=== PATIENT | male | born 1995 | race Caucasian/White ===

== ENCOUNTER 2016-07-20 20:14 | Inpatient (IN) | payer OTHER ==
[~2016-07-20] VITALS: Ht 172.7 cm; Wt 108.9 kg
[~2016-07-20 20:14] MED LIST: AMOXICILLIN500 M2 PO; BACTRIM DS TAB1 EACH PO; BENADRYL25 MG PO; CLONAZEPAM1 M2 PO; FLOMAX0.4 M1 PO; HYDROMORPHONE HC4 M1 PO; IBUPROFEN800 M1 PO; KEFLEX500 M1 PO; OXYCONTIN60 M1 PO; PAROXETINE HCL40 M1 PO; PERCOCET 5-3251 EACH PO; SENNA8.6 M3 PO; TRAMADOL HCL50 M1 PO; ZOFRAN ODT4 M1 SL
--- NOTE | 2016-07-20 22:07 | ED GENERAL ADULT ---
History of Present Illness General Chief Complaint: General Adult Stated Complaint: MULTIPLE COMPLAINTS Source: patient, family Exam Limitations: no limitations Vital Signs & Intake/Output Vital Signs & Intake/Output Vital Signs Date Time Temp Pulse Resp B/P Pulse O2 O2 Flow FiO2 Ox Delivery Rate 07/20 2353 99.9 108 18 102/52 94 Room Air 07/20 2318 99 Room Air 07/20 2023 100.9 134 16 134/79 98 Room Air Room Air ED Intake and Output 07/21 0000 07/20 1200 Intake Total Output Total Balance Patient 240 lb Weight Allergies Coded Allergies: No Known Allergies (07/20/16) Reconcile Medications Amoxicillin 500 MG CAPSULE 1 CAP PO PRN PROPHYLAXIS (Reported) Cephalexin (Keflex) 500 MG CAPSULE 1 CAP PO 4 TIMES/DAY cellulitis Clonazepam 1 MG TABLET 1 TAB PO BID ANXIETY (Reported) Diphenhydramine HCl (Benadryl) 25 MG CAPSULE 2 CAP PO PRN ITCHING (Reported) Hydromorphone HCl 4 MG TABLET 2.5 TAB PO Q3D PAIN - WOUND VAC CHANGE ( Reported) Ibuprofen 800 MG TABLET 1 TAB PO TID PRN pain Ondansetron (Zofran Odt) 4 MG TAB.RAPDIS 1 TAB SL TID PRN nausea Oxycodone HCl (Oxycontin) 60 MG TAB.ER.12H 1 TAB PO BID PAIN (Reported) Oxycodone HCl/Acetaminophen (Percocet 5-325 MG Tablet) 1 EACH TABLET 1 TAB PO Q4HR PRN breakthrough pain Paroxetine HCl 40 MG TABLET 1 TAB PO DAILY MENTAL HEALTH (Reported) Sennosides (Senna) 8.6 MG TABLET 2 TAB PO PRN GI (Reported) Sulfamethoxazole/Trimethoprim (Bactrim Ds Tablet) 800 MG-160 MG TABLET 1 TAB PO BID cellulitis Tamsulosin HCl (Flomax) 0.4 MG CAP.ER.24H 1 CAP PO DAILY KIDNEY STONE Tamsulosin HCl (Flomax) 0.4 MG CAP.ER.24H 1 CAP PO DAILY kidney stone Tramadol HCl 50 MG TABLET 1 TAB PO Q6P PRN PAIN (Reported) Triage Note: PT TO TRIAGE WITH RIGHT THIGH PAIN, SWELLING AND REDDNESS. PT STATES HE HAS A HX OF CELLULITIS AND NECROTIZING FACITIS TO THE SAME SPOT SINCE LAST YEAR. PT HAS HAD FEVERS AT HOME Triage Nurses Notes Reviewed? yes Onset: Gradual Duration: getting worse Timing: recent history Severity: severe Severity Numbers: 7 HPI: Patient is a 21-year-old male with a past medical HX OF necrotizing fasciitis, ADHD, anxiety and migraines who presents to emergency room with a gradual onset of redness to the RIGHT groin region approximately 3-4 days ago however the redness has now progressed WITH irritation and swelling to the right inguinal region. Denies any active discharge. Patient has fevers Denies any testicular swelling or pain. Denies any mechanism of injury (MITA DRUMMOND) Past History Travel History Traveled to [place] past 21 day No Medical History Any Pertinent Medical History? 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 No (MITA DRUMMOND) Review of Systems Review of Systems Constitutional: Reports: no symptoms. EENTM: Reports: no symptoms. Respiratory: Reports: no symptoms. Cardiovascular: Reports: no symptoms. GI: Reports: no symptoms. Genitourinary: Reports: no symptoms. Musculoskeletal: Reports: see HPI. Skin: Reports: see HPI. Neurological/Psychological: Reports: no symptoms. Hematologic/Endocrine: Reports: no symptoms. Immunologic/Allergic: Reports: no symptoms. All Other Systems: Reviewed and Negative (MITA DRUMMOND) Physical Exam Physical Exam General Appearance: alert, obese Head: atraumatic Eyes: Bilateral: normal appearance, PERRL. Ears, Nose, Throat: normal pharynx, normal ENT inspection, hearing grossly normal Neck: normal inspection, supple Respiratory: normal breath sounds, chest non-tender Cardiovascular: regular rate/rhythm Extremities: normal capillary refill, swelling, tenderness Neurologic/Psych: no motor/sensory deficits, awake Skin: intact Lymphatic: no anterior cervical paris Comments: - testicles nontender no scrotal swelling no tenderness Core Measures ACS in differential dx? No CVA/TIA Diagnosis: No Severe Sepsis Present: No Septic Shock Present: No Diagram Body: 1) Erythema warmth and tenderness noted no active discharge (MITA DRUMMOND) Progress Differential Diagnoses I considered the following diagnoses in my evaluation of the patient: [ Cellulitis, abscess, NECROTIZING fasciitis, sepsis, testicular torsion] Plan of Care: Orders Procedure Date/time Status LACTIC ACID 07/215 Active Admit to inpatient 07/20 234 Active Patient Data 07/20 2336 Active PARTIAL THROMBOPLASTIN TIME 07/20 2215 Complete PROTHROMBIN TIME 07/20 2215 Complete TYPE & SCREEN (NOT X-MATCH) 07/20 2215 Complete BLOOD CULTURE 07/20 2214 Active LACTIC ACID 07/20 2214 Complete COMPREHENSIVE METABOLIC PANEL 07/20 2214 Complete CBC WITHOUT DIFFERENTIAL 07/20 2214 Complete Laboratory Tests 07/20/162304: Anion Gap 9, Estimated GFR > 60, BUN/Creatinine Ratio 10.0, Glucose 81, Lactic Acid 1.3, Calcium 7.9 L, Total Bilirubin 0.4, AST 26, ALT 65, Alkaline Phosphatase 70, Total Protein 5.8 L, Albumin 3.2 L, Globulin 2.6, Albumin/ Globulin Ratio 1.2 07/20/162214: PT 12.8 H, INR 1.22 H, APTT 27, CBC w Diff MAN DIFF ORDERED, RBC 5.88, MCV 85.8, MCH 28.4, RDW 16.9 H, MPV 7.2 L, Gran % 90.7 H, Lymphocytes % 8.1 L, Monocytes % 1.0 L, Eosinophils % 0.1, Basophils % 0.1, Absolute Granulocytes 17.0 H, Segmented Neutrophils 78 H, Band Neutrophils 9 H, Absolute Lymphocytes 1.5, Lymphocytes 11 L, Monocytes 2, Absolute Monocytes 0.2, Absolute Eosinophils 0, Absolute Basophils 0, Platelet Estimate ADEQUATE, Normocytic RBCs VERIFIED, Normochromic RBCs VERIFIED, PUBS MCHC 33.1 Microbiology 07/20 2229 BLOOD: Blood Culture - RECD 07/20 2214 BLOOD: Blood Culture - RECD Patient was initially ordered antibiotics for concerns of necrotizing fasciitis however after CT scan was resulted there was no radiological evidence -per report- of abscess AIR or necrotizing fasciitis Discussed patient with surgical JUAN and Dr. Parham also discussed patient with Hema Mcclure MD who they will consult Patient will be admitted to general medicine and will REQUIRE IV antibiotics and close monitoring for significant past medical history (MITA DRUMMOND) Diagnostic Imaging: Viewed by Me: CT Scan. Radiology Impression: acute abnormality Initial ED EKG: none Comments: PATIENT: SIENNA LOWERY PRESENT AGE: 21 PATIENT ACCOUNT NO: [id number] : 94 LOCATION: [facility] ORDERING PHYSICIAN: MITA MARTINEZ SERVICE DATE: 07/20/165709 EXAM TYPE: CAT - CT PELVIS W IV CONTRAST EXAMINATION: CT PELVIS WITH IV CONTRAST CLINICAL INFORMATION: Right inguinal cellulitis and abscess. Necrotizing fasciitis right groin and hip. COMPARISON: CT right hip 04/23/2016. CT scan abdomen pelvis 12/16/2015 TECHNIQUE: Helical scanning was performed with submillimeter collimation through the pelvis with 95 mL of Optiray 320 intravenous contrast. Sagittal and coronal multiplanar 2-D reconstructions were obtained. DLP: 1343.36 mGy-cm. FINDINGS: No intrapelvic abnormality. No edema or fluid collection. Visualized bowel loops unremarkable. Bladder normal. Prostate and seminal vesicles normal. No ventral wall hernia. There is fluid and skin thickening of the right upper thigh extending from the anterior medial thigh through the inferior right gluteal region to the upper medial thigh. No air collection within the soft tissues. No focal organized abscess. No radiopaque foreign body. The intermuscular fat planes are normal. No focal finding in the muscle. Bone unremarkable. IMPRESSION: Subcutaneous fluid and skin thickening of the right upper thigh without defined abscess or air in the soft tissue. DICTATED BY: JV JOYNER MD (MITA DRUMMOND) Departure Departure Disposition: STILL A PATIENT Condition: Guarded Clinical Impression Primary Impression: Cellulitis of groin, right Referrals: HUONG APARICIO MD (PCP/Family) Departure Forms: Customer Survey General Discharge Information Admission Note Spoke With: KRANTHI FLORENCE MD Documentation of Exam: Documentation of any treatments & extenuating circumstances including Concerns Regarding Discharge (functional status, medication knowledge or non-compliance, living conditions, etc.) that warrant an admission rather than observation: [ Discussed patient with WHO AGREES with GEN medicine admission for concerns of significant right groin cellulitis which patient requires IV antibiotics, and surgery consultation and close monitoring due to significant past medical history of necrotizing fasciitis] (MITA DRUMMOND) PA/BRIDGE IRONWORKER Co-Sign Statement Statement: ED Attending supervision documentation- [X] I saw and evaluated the patient. I have also reviewed all the pertinent lab results and diagnostic results. I agree with the findings and the plan of care as documented in the PA's/BRIDGE IRONWORKER's documentation. [X] I have reviewed the ED Record and agree with the PA's/BRIDGE IRONWORKER's documentation. [] Additions or exceptions (if any) to the PAs/BRIDGE IRONWORKER's note and plan are summarized below: [] (DIDIER TAYLOR,XENIA Gonzales) Critical Care Note Critical Care Note Critical Care Time: non-applicable (MITA DRUMMOND)
[2016-07-20 22:41] LABS: ABSOLUTE BASOPHIL COUNT 0 /CUMM (0.0-0.2); ABSOLUTE EOSINOPHIL COUNT 0 /CUMM (0.0-0.7); ABSOLUTE LYMPH COUNT 1.5 /CUMM (1.2-3.4); ABSOLUTE MONOCYTE COUNT 0.2 /CUMM (0.10-0.60); BASOPHIL % 0.1 % (0.0-2.0); EOSINOPHIL % 0.1 % (0-5); HEMATOCRIT 50.4 % (42-52); MEAN CORPUSCULAR HGB 28.4 PG (27.0-31.0); MEAN CORPUSCULAR HGB CONC 33.1 G/DL (33.0-37.0); MEAN CORPUSCULAR VOLUME 85.8 FL (80.0-94.0); MEAN PLATELET VOLUME 7.2 FL (7.4-10.4); PLATELET COUNT 237 /CUMM (130-400); RBC DISTRIBUTION WIDTH 16.9 % (11.5-14.5); RED BLOOD CELL CT 5.88 /CUMM (4.70-6.10); WHITE BLOOD CELL COUNT 18.8 /CUMM (4.8-10.8)
[2016-07-20 22:49] LABS: PT 12.8 SEC (9.4-12.5); PTT 27 SEC (25-37)
[2016-07-20 22:54] LABS: GRANULOCYTE % 90.7 % (42.2-75.2)
--- NOTE | 2016-07-20 23:24 | CT SCAN REPORT ---
EXAMINATION: CT PELVIS WITH IV CONTRAST CLINICAL INFORMATION: Right inguinal cellulitis and abscess. Necrotizing fasciitis right groin and hip. COMPARISON: CT right hip 04/23/2016. CT scan abdomen pelvis 12/16/2015 TECHNIQUE: Helical scanning was performed with submillimeter collimation through the pelvis with 95 mL of Optiray 320 intravenous contrast. Sagittal and coronal multiplanar 2-D reconstructions were obtained. DLP: 1343.36 mGy-cm. FINDINGS: No intrapelvic abnormality. No edema or fluid collection. Visualized bowel loops unremarkable. Bladder normal. Prostate and seminal vesicles normal. No ventral wall hernia. There is fluid and skin thickening of the right upper thigh extending from the anterior medial thigh through the inferior right gluteal region to the upper medial thigh. No air collection within the soft tissues. No focal organized abscess. No radiopaque foreign body. The intermuscular fat planes are normal. No focal finding in the muscle. Bone unremarkable. IMPRESSION: Subcutaneous fluid and skin thickening of the right upper thigh without defined abscess or air in the soft tissue.
--- NOTE | 2016-07-21 00:53 | Cons- General Surgery ---
General Information and HPI Consulting Request Date of Consult: 07/21/16 Requested By: Felipe Mancera PA-C Reason for Consult: Left thigh cellulitis Source of Information: patient, family Exam Limitations: no limitations History of Present Illness: Patient is a 21yo M with history of right thigh necrotizing fasciitis (treated at [facility] and released in November of 2015) , right thigh cellulitis in April 2016 requiring hospital admission but no surgery, whom presents to [facility] ED with left thigh redness and fever. Patient states his symptoms started a couple of days ago with some mild redness but this morning he had increased redness, increased swelling, and mild tenderness in his left posterior thigh. He c/o slight fever as well. He denies any drainage. No changes in sensation to RLE. He states that this episode is similar to the one he had last April which required hospital admission and a course of IV abx. No further c/o. Denies CP/ SOB. Allergies/Medications Allergies: Coded Allergies: No Known Allergies (07/20/16) Home Med List: Amoxicillin 500 MG CAPSULE 1 CAP PO PRN PROPHYLAXIS (Reported) Cephalexin (Keflex) 500 MG CAPSULE 1 CAP PO 4 TIMES/DAY cellulitis Clonazepam 1 MG TABLET 1 TAB PO BID ANXIETY (Reported) Diphenhydramine HCl (Benadryl) 25 MG CAPSULE 2 CAP PO PRN ITCHING (Reported) Hydromorphone HCl 4 MG TABLET 2.5 TAB PO Q3D PAIN - WOUND VAC CHANGE ( Reported) Ibuprofen 800 MG TABLET 1 TAB PO TID PRN pain Ondansetron (Zofran Odt) 4 MG TAB.RAPDIS 1 TAB SL TID PRN nausea Oxycodone HCl (Oxycontin) 60 MG TAB.ER.12H 1 TAB PO BID PAIN (Reported) Oxycodone HCl/Acetaminophen (Percocet 5-325 MG Tablet) 1 EACH TABLET 1 TAB PO Q4HR PRN breakthrough pain Paroxetine HCl 40 MG TABLET 1 TAB PO DAILY MENTAL HEALTH (Reported) Sennosides (Senna) 8.6 MG TABLET 2 TAB PO PRN GI (Reported) Sulfamethoxazole/Trimethoprim (Bactrim Ds Tablet) 800 MG-160 MG TABLET 1 TAB PO BID cellulitis Tamsulosin HCl (Flomax) 0.4 MG CAP.ER.24H 1 CAP PO DAILY KIDNEY STONE Tamsulosin HCl (Flomax) 0.4 MG CAP.ER.24H 1 CAP PO DAILY kidney stone Tramadol HCl 50 MG TABLET 1 TAB PO Q6P PRN PAIN (Reported) Past History Medical History Neurological: migraine EENT: NONE Cardiovascular: NONE Respiratory: NONE Gastrointestinal: NONE Hepatic: NONE Renal: NONE Musculoskeletal: necrotizing fasciitis R WRIST FX FX TOE Psychiatric: anxiety, depression, OCD Endocrine: NONE Blood Disorders: NONE Cancer(s): NONE 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 EENTM: Reports: no symptoms. Cardiovascular: Denies: chest pain, palpitations. Respiratory: Denies: short of breath. GI: Denies: abdominal pain, distention. Genitourinary: Denies: dysuria, frequency. Musculoskeletal: Reports: no symptoms. Skin: Reports: see HPI. Exam & Diagnostic Data Vital Signs and I&O Vital Signs Date Time Temp Pulse Resp B/P Pulse O2 O2 Flow FiO2 Ox Delivery Rate 07/20 2353 99.9 108 18 102/52 94 Room Air 07/20 2318 99 Room Air 07/20 2023 100.9 134 16 134/79 98 Room Air Room Air Intake & Output 07/21 0800 07/21 0000 07/20 1600 07/20 0800 07/20 0000 07/19 1600 Intake Total Output Total Balance Patient 240 lb Weight Physical Exam: General: WDWN, NAD, comfortable, A&Ox3 Chest: CTAB. RRR. Abdomen: soft, nontender, nondistended. Ext: Right thigh circumferential cellulitis that starts at the superior thigh and ends mid thigh. There is an area of tenderness in posterior thigh but no areas of induration, fluctuance, or obvious areas of abscess formation. Right thigh is mildly swollen and warm to touch, compartments soft. No calve swelling /TTP, neurovascularly intact bilateral lower extremities Last 24 Hours of Labs: Laboratory Tests 07/20 07/20 2305 2215 Chemistry Sodium (137 - 145 mmol/L) 136 L Potassium (3.5 - 5.1 mmol/L) 3.7 Chloride (98 - 107 mmol/L) 101 Carbon Dioxide (22 - 30 mmol/L) 26 Anion Gap (5 - 16) 9 BUN (9 - 20 mg/dL) 12 Creatinine (0.7 - 1.2 mg/dL) 1.2 Estimated GFR (>60 ml/min) > 60 BUN/Creatinine Ratio (7 - 25 %) 10.0 Glucose (65 - 99 mg/dL) 81 Lactic Acid (0.7 - 2.1 mmol/L) 1.3 Calcium (8.4 - 10.2 mg/dL) 7.9 L Total Bilirubin (0.2 - 1.3 mg/dL) 0.4 AST (17 - 59 U/L) 26 ALT (21 - 72 U/L) 65 Alkaline Phosphatase (< 127 U/L) 70 Total Protein (6.3 - 8.2 g/dL) 5.8 L Albumin (3.5 - 5.0 g/dL) 3.2 L Globulin (1.9 - 4.2 gm/dL) 2.6 Albumin/Globulin Ratio (1.1 - 2.2 %) 1.2 Coagulation PT (9.4 - 12.5 SEC) 12.8 H INR (0.90 - 1.17) 1.22 H APTT (25 - 37 SEC) 27 Hematology CBC w Diff MAN DIFF ORDERED WBC (4.8 - 10.8 /CUMM) 18.8 H RBC (4.70 - 6.10 /CUMM) 5.88 Hgb (14.0 - 18.0 G/DL) 16.7 Hct (42 - 52 %) 50.4 MCV (80.0 - 94.0 FL) 85.8 MCH (27.0 - 31.0 PG) 28.4 RDW (11.5 - 14.5 %) 16.9 H Plt Count (130 - 400 /CUMM) 237 MPV (7.4 - 10.4 FL) 7.2 L Gran % (42.2 - 75.2 %) 90.7 H Lymphocytes % (20.5 - 51.1 %) 8.1 L Monocytes % (1.7 - 9.3 %) 1.0 L Eosinophils % (0 - 5 %) 0.1 Basophils % (0.0 - 2.0 %) 0.1 Absolute Granulocytes (1.4 - 6.5 /CUMM) 17.0 H Segmented Neutrophils (42.2 - 75.2 %) 78 H Band Neutrophils (0.0 - 5.0 %) 9 H Absolute Lymphocytes (1.2 - 3.4 /CUMM) 1.5 Lymphocytes (20.5 - 51.1 %) 11 L Monocytes (1.7 - 9.3 %) 2 Absolute Monocytes (0.10 - 0.60 /CUMM) 0.2 Absolute Eosinophils (0.0 - 0.7 /CUMM) 0 Absolute Basophils (0.0 - 0.2 /CUMM) 0 Platelet Estimate (ADEQUATE) ADEQUATE Normocytic RBCs VERIFIED Normochromic RBCs VERIFIED PUBS MCHC (33.0 - 37.0 G/DL) 33.1 Imaging Results: EXAM TYPE: CAT - CT PELVIS W IV CONTRAST EXAMINATION: CT PELVIS WITH IV CONTRAST CLINICAL INFORMATION: Right inguinal cellulitis and abscess. Necrotizing fasciitis right groin and hip. COMPARISON: CT right hip 04/23/2016. CT scan abdomen pelvis 12/16/2015 TECHNIQUE: Helical scanning was performed with submillimeter collimation through the pelvis with 95 mL of Optiray 320 intravenous contrast. Sagittal and coronal multiplanar 2-D reconstructions were obtained. DLP: 1343.36 mGy-cm. FINDINGS: No intrapelvic abnormality. No edema or fluid collection. Visualized bowel loops unremarkable. Bladder normal. Prostate and seminal vesicles normal. No ventral wall hernia. There is fluid and skin thickening of the right upper thigh extending from the anterior medial thigh through the inferior right gluteal region to the upper medial thigh. No air collection within the soft tissues. No focal organized abscess. No radiopaque foreign body. The intermuscular fat planes are normal. No focal finding in the muscle. Bone unremarkable. IMPRESSION: Subcutaneous fluid and skin thickening of the right upper thigh without defined abscess or air in the soft tissue. Assessment/Plan Assessment/Plan 21yo M with history of right thigh necrotizing fasciitis that presents with right thigh cellulitis without obvious areas of abscess formation. No evidence of necrotizing fasciitis on CT scan. - Admit to medicine - IV antibiotics - Pain control - Cellulitis areas marked, continue to follow progression/regression - Okay to have sips of fluids but remain nothing by mouth after 4 AM for reassessment - Continue IVF - Will reassess in morning, Hema Mcclure MD to see Consult Acknowledgment - Thank you for your consult request.
--- NOTE | 2016-07-21 02:12 | History & Physical ---
ABHI TAYLOR,DANIELA 07/21/16 0211: General Information and HPI MD Statement: I have seen and personally examined SIENNA LOWERY and documented this H&P. The patient is a 21 year old M who presented with a patient stated chief complaint of [fever, erythema and pain on the right upper thigh]. Source of Information: patient, family Exam Limitations: no limitations History of Present Illness: Patient is a 21-year-old male who has come to the ED due to fever chills, pain and redness of the right upper thigh. Patient started to have fever and chills since 2 weeks ago, he also developed symptoms of upper respiratory tract infection including cough and shortness of breath for a couple of days. He noticed a redness and tenderness on the right upper thigh and right lower back this morning, accompanied by severe muscle weakness and headache and a spike of fever to 103.9. Patient has a history of necrotizing fasciitis in November 2015 at [place] that required debridement, at a similar site. According to mother the bacteria grown in the cultures was Streptococcus and was negative for MRSA. Recently he had an episode of cellulitis in April 2016 again at the same site, was admitted to [facility] and was treated with oral antibiotics. His past medical history is also significant for ADHD, anxiety and depression, as well as migraine. Allergies/Medications Allergies: Coded Allergies: No Known Allergies (07/20/16) Past History Travel History Traveled to [place] past 21 day No Medical History Neurological: migraine EENT: NONE Cardiovascular: NONE Respiratory: NONE Gastrointestinal: NONE Hepatic: NONE Renal: nephrolithiasis Musculoskeletal: necrotizing fasciitis R WRIST FX FX TOE Psychiatric: anxiety, depression, OCD, ADHD Endocrine: NONE Blood Disorders: NONE Cancer(s): NONE SYSTEMS ANALYST/Reproductive: NONE Surgical History Surgical History: nec fas removal r hip Past Family/Social History Family History Relations & Conditions if any FATHER FH: hypertension MOTHER FH: asthma Psychosocial History ETOH Use: occasional use Illicit Drug Use: denies illicit drug use Living Will? yes Functional Ability ADLs Independent: dressing, eating, toileting, bathing. Ambulation: independent IADLs Independent: shopping, housework, finances, food prep, telephone, transportation , medication admin. Review of Systems Review of Systems Constitutional: Reports: chills, fever, weakness. EENTM: Reports: no symptoms. Cardiovascular: Reports: no symptoms. Respiratory: Reports: cough, short of breath. Denies: sputum production. GI: Denies: abdominal pain, nausea, changes in stool, vomiting. Genitourinary: Denies: discharge, dysuria, frequency, hematuria, hesitation. Musculoskeletal: Denies: back pain, joint pain. Skin: Reports: erythema. Neurological/Psychological: Reports: headache, weakness. Hematologic/Endocrine: Denies: bruising, bleeding, polyuria, polydipsia. Exam & Diagnostic Data Last 24 Hrs of Vital Signs/I&O Vital Signs Date Time Temp Pulse Resp B/P Pulse O2 O2 Flow FiO2 Ox Delivery Rate 07/21 0426 98.3 103 20 110/70 96 Room Air 07/203 99.9 108 18 102/52 94 Room Air 07/20 2318 99 Room Air 07/20 2023 100.9 134 16 134/79 98 Room Air Room Air Intake & Output 07/21 0800 07/21 0000 07/20 1600 Intake Total Output Total Balance Patient 108.862 kg Weight Physical Exam General Appearance Alert, Oriented X3, Cooperative, No Acute Distress Skin erythema on the left lower extremity on the lateral side extending from upper thrid of the thigh to lower back, not affecting scrotum and medial thigh and not extending from midline HEENT Atraumatic, PERRLA, EOMI, Mucous Membr. moist/pink Neck Supple Cardiovascular Regular Rate, Normal S1, Normal S2, No Murmurs Lungs Clear to Auscultation, Normal Air Movement Abdomen Normal Bowel Sounds, Soft, No Tenderness Neurological Normal Gait, Normal Speech, Strength at 5/5 X4 Ext, Normal Tone, Sensation Intact, Cranial Nerves 3-12 NL Extremities No Clubbing, No Cyanosis, No Edema, Normal Pulses, tenderness and erythema on the right upper thigh and lower back Vascular Normal Pulses, Pulses Symmetrical Last 24 Hrs of Labs/Reza: Laboratory Tests 07/21/16 0115: Lactic Acid Cancelled 07/20/16 2305: Anion Gap 9, Estimated GFR > 60, BUN/Creatinine Ratio 10.0, Glucose 81, Lactic Acid 1.3, Calcium 7.9 L, Total Bilirubin 0.4, AST 26, ALT 65, Alkaline Phosphatase 70, Total Protein 5.8 L, Albumin 3.2 L, Globulin 2.6, Albumin/ Globulin Ratio 1.2 07/20/165: PT 12.8 H, INR 1.22 H, APTT 27, CBC w Diff MAN DIFF ORDERED, RBC 5.88, MCV 85.8, MCH 28.4, RDW 16.9 H, MPV 7.2 L, Gran % 90.7 H, Lymphocytes % 8.1 L, Monocytes % 1.0 L, Eosinophils % 0.1, Basophils % 0.1, Absolute Granulocytes 17.0 H, Segmented Neutrophils 78 H, Band Neutrophils 9 H, Absolute Lymphocytes 1.5, Lymphocytes 11 L, Monocytes 2, Absolute Monocytes 0.2, Absolute Eosinophils 0, Absolute Basophils 0, Platelet Estimate ADEQUATE, Normocytic RBCs VERIFIED, Normochromic RBCs VERIFIED, PUBS MCHC 33.1 Microbiology 07/21 0238 URINE ROUT: Streptococcus pneumoniae Antigen (M - ORD 07/20 2229 BLOOD: Blood Culture - RECD 07/20 2214 BLOOD: Blood Culture - RECD Assessment/Plan Assessment: Patient is a 21-year-old male with past medical history significant for a necrotizing fasciitis as well as cellulitis on the right upper thigh, ADHD, anxiety and depression, migraine headaches, nephrolithiasis, OCD, who came to the ED with fever of 2 weeks and a right upper thigh pain and erythema for one day. Also reported symptoms of URTI for [address] scan of the pelvis reported subcutaneous fluid and skin thickening of the right upper thigh without defined abscess or air in the soft tissue. Patient also reports coughing, shortness of breath for the past few days. Problem list and plan Sepsis with fever and cellulitis Patient has a history of necrotizing fasciitis status post debridement in November 2015 on the right upper thigh. * Lactic acid 1.3 * IV fluids * Continue IV antibiotics with Unasyn and clindamycin * Oxycodone 5 mg every 6 PRN and IV Morphine 2 mg every 4 PRN for pain * CT of the pelvis has ruled out necrotizing fasciitis * Surgeries on board, will follow-up on the patient as well * Tylenol for fever Possible bronchitis with cough, sore throat, SOB and fever * influenza swab * urinary strep antigen * CXR History of ADHD Patient does not take Adderall regularly every day, takes 30 mg if needed History of anxiety and depression and migraine headaches * Continue duloxetine 60 mg daily * Continue aripiprazole 2 mg daily * Continue Klonopin 1 mg twice a day History of neuropathic pain Developed after debridement for necrotizing fasciitis a year ago, patient reports paresthesia of the right distal upper thigh * Continue gabapentin 300 mg every 8h DVT prophylaxis * Mechanical for possible surgical intervention Diet * NPO CODE STATUS * full code As Ranked By This Provider Problem List: 1. History of necrotizing fasciitis 2. Cellulitis of groin, right 3. Migraine 4. ADHD (attention deficit hyperactivity disorder) 5. Anxiety 6. Depression 7. Depression Core Measures/Miscellaneous Acute Coronary Syndrome ACS Diagnosis: No Cerebrovascular Accident CVA/TIA Diagnosis: No Congestive Heart Failure CHF Diagnosis: No Venous Thromboembolism VTE Risk Factors: Acute medical illness VTE Prophylaxis Ordered Inpt: Mechanical (ALPS/TEDS) No Mech VTE prophylaxis d/t: No contraindications No VTE Pharm Prophylaxis d/t: No contraindications VTE Diagnosis: No VTE Type: NONE VTE Confirmed by (Test): NONE Severe Sepsis Severe Sepsis Present: No Septic Shock Septic Shock Present: No Miscellaneous Documentation Attending Case Discussed With: KRANTHI FLORENCE MD Primary Care Physician: HUONG APARICIO MD Patient sees these Specialists Dr. Eulalio Amezcua, Psychiatrist Level of Patient Care: General Medicine ROSELIA DAMICO MD 07/21/16 0228: General Information and HPI Allergies/Medications Home Med list Aripiprazole (Abilify) 2 MG TABLET 1 TAB PO DAILY DEPRESSION (Reported) Clonazepam 1 MG TABLET 1 TAB PO BID ANXIETY (Reported) Dextroamphetamine/Amphetamine (Adderall 30 MG Tablet) 30 MG TABLET 1 TAB PO DAILY PRN ADD (Reported) Duloxetine HCl (Cymbalta) 60 MG CAPSULE.DR 1 CAP PO DAILY PAIN/DEPRESSION ( Reported) Gabapentin 300 MG CAPSULE 1 CAP PO TID NEUROPATHIC PAIN (Reported) Resident Review Statement Resident Statement: examined this patient, discussed with computer science intern, agreed with computer science intern, discussed with family, reviewed EMR data (avail), reviewed images, amended to note Other Findings: This is 21-year-old obese young bekah with past medical history of ADHD, KISHA, chronic migraine, nephrolithiasis, OCD, depression, history of necrotizing fasciitis of right thigh status post multiple debridement and wound VAC 1 year prior to admission, was seen in ER in April 2016 for cellulitis of right thigh and was sent home on oral antibiotic with subsequent improvement of the symptoms now comes from home with chief complaint of 2 weeks history of fever and 2 days history of dry cough associated with shortness of breath and sore throat with generalized weakness, noticed significant redness/swelling and pain of right thigh on the day of admission. Patient also report high-grade fewer of 103.9 at home on day of admission with associated severe headache. He denies any recent upper respiratory infection, nausea, vomiting, diarrhea, urinary burning/pain, chest pain or recent travel/sick contact or tick bite. His vitals on admission were T 100.9, HR 134, RR 16, BP 134/79, O2 sat 98% on room air. On physical exam patient noted morbidly obese, alert oriented 3 in mild distress, HEENT PERRLA EOMI, neck supple, heart is Normal without murmur, lungs clear on auscultation, abdomen soft nontender nondistended with preserved fall sounds, noted old healed surgical incision over right gluteal fold with surrounding erythema extending to right thigh, tender to touch, peripheral pulses are intact without any surrounding edema, no focal gross neuro deficit. Capillary refill normal Labs revealed leukocytosis of 18,800 with left shift and bands of 9, H&H 16.7/ 50.4, T3 peripheral, sodium 136, BUN 12, creatinine 1.2, lactic acid 1.3, normal LFT, INR 1.22 CT pelvis with IV contrast revealed subcutaneous fluid and skin thickening of the right upper thigh without abscess or air in soft tissue. Assessment: This is 21 year old obese man with past medical history of necrotizing fasciitis requiring significant department and bone defect placement of a year prior to admission who had another episode of right thigh cellulitis in April 2016 which was treated with oral antibiotic as outpatient now comes in with 2 weeks history of intermittent fever and one day history of significant redness swelling and tenderness of right thigh likely suggestive of acute cellulitis . Patient also reported 2 days history of shortness of breath sore throat and fever. 1. Sepsis secondary to acute cellulitis Patient noted being tachycardic with leukocytosis with bandemia suggestive of sepsis in setting of cellulitis. His lactic acid noted normal on admission and he remained normotensive with normal mental status. CT scan of the pelvis noted negative for any evidence of necrotizing fasciitis or abscess. - Follow-up blood culture - Patient received 1 dose of IV clindamycin, Unasyn and ciprofloxacin in ER - We'll continue IV Unasyn 3 g every 6 hours which will give appropriate gram- positive and gram-negative coverage - Patient received a dose of clindamycin which will give appropriate MRSA and anaerobic coverage - We'll give 1 dose of vancomycin pending blood culture results in the morning - Monitor for any signs of sepsis, give IV gentle fluid hydration - Appreciate surgery recommendation, will keep patient nothing by mouth for possible IND in a.m. in case if it requires 2. Cough with sore throat and fever - ? Acute bronchitis - Check flu swab, strep urinary antigen - Chest x-ray 3. History of ADD 3, KISHA, depression/anxiety - Continue home dose Cymbalta, clonazepam and Abilify - Patient takes Adderall 30 mg as needed basis 4. Right thigh neuropathic pain -Continue Cymbalta and Neurontin home dose 5. DVT prophylaxis Mechanical in anticipation of any surgical intervention including IND 6. Full code NAMAN TAYLOR, [facility] 07/21/16 0455: Attending MD Review Statement Attending Statement Attending MD Statement: examined this patient, discuss w/resident/PA/RUBBER PROCESS HAND, agreed w/resident/PA/RUBBER PROCESS HAND, discussed with family Attending Assessment/Plan: 21 yo morbidly obese M with h/o chronic migraine, nephrolithiasis, ADHD, MDD, KISHA, OCD, previous necrotizing fascitis of right thigh requiring multiple debridements and wound Vac ([facility] November 2015), is here with chills for over 2 weeks, followed by erythema, swelling and tenderness noted to right thigh. Last episode of right thigh cellulitis was in Apr 2016 treated with outpatient antibiotics. He denies insect/tick bites or trauma. He also reports URI symptoms in the past few weeks. He is not sexually active and denies abnormal discharge from penis or erythema/swelling of testicles. Vitals: Tmax 100.9, tachycardic, otherwise stable. Exam: Right thigh swelling, warmth+, erythema from groin to mid thigh, old healed scar+. No obvious fluctuance or purulent discharge. Peripheral pulses well felt. Labs: WBC 18.8, bands 9, INR 1.22, Na 136, lactic acid 1.3, CT shows subcutaneous fluid and skin thickening of right upper thigh without defined abscess or air in soft tissue. 1. Sepsis 2/2 right thigh cellulitis, no current evidence of necrotizing fascitis. Elevate RLE, panculture, patient received Clinda, unasyn and cipro in ER for possible nec fas. Will continue IV Unasyn and Vanco, dariel the area of erythema. Surgery consult. IV fluids. NPO after 4 AM for reassessment by Surgery in AM. Pain management. 2. URI symptoms. Check flu swab and CXR. DVT ppx Alps. Full code.
[2016-07-21] MEDS ORDERED: GABAPENTIN300 M2 PO (02:18)
[2016-07-21] MEDS ORDERED: ADDERALL 30 MG30 MG PO (02:18)
[2016-07-21] MEDS ORDERED: CYMBALTA60 M1 PO (02:19)
[2016-07-21] MEDS ORDERED: ABILIFY2 MG PO (02:19)
[2016-07-21 04:26] VITALS: BP 110/70
--- NOTE | 2016-07-21 04:49 | Admission Certification ---
Admission Certification Certification Statement - As attending physician, I certify that at the time of - admission, based on clinical presentation, severity of - symptoms, need for further diagnostic testing and - therapeutic interventions, and risk of adverse outcomes - without in-hospital treatment, in my clinical assessment, - this patient requires an acute hospital stay for a minimum - of two nights or longer. I have also considered psychsocial - factors such as support system, advanced age, financial - issues, cognitive issues, and failed out-patient treatments, - past re-admission history, safety of patient, and lack of - compliance as applicable. Specific rationale supporting this admission is: Sepsis, right thigh cellulitis, previus h/o necrotizing fascitis.
[2016-07-21 05:57] VITALS: BP 94/70
[2016-07-21 08:11] LABS: ABSOLUTE BASOPHIL COUNT 0 /CUMM (0.0-0.2); ABSOLUTE EOSINOPHIL COUNT 0 /CUMM (0.0-0.7); ABSOLUTE MONOCYTE COUNT 0.3 /CUMM (0.10-0.60); BASOPHIL % 0.1 % (0.0-2.0); EOSINOPHIL % 0.3 % (0-5); MEAN CORPUSCULAR HGB 28.9 PG (27.0-31.0); PLATELET COUNT 203 /CUMM (130-400); WHITE BLOOD CELL COUNT 13.1 /CUMM (4.8-10.8)
[2016-07-21 08:35] LABS: ABSOLUTE GRANULOCYTE CT 11.4 /CUMM (1.4-6.5); ABSOLUTE LYMPH COUNT 1.4 /CUMM (1.2-3.4); GRANULOCYTE % 87.2 % (42.2-75.2); MEAN CORPUSCULAR HGB CONC 33.7 G/DL (33.0-37.0); MEAN CORPUSCULAR VOLUME 85.6 FL (80.0-94.0); MEAN PLATELET VOLUME 7.4 FL (7.4-10.4); RBC DISTRIBUTION WIDTH 17.7 % (11.5-14.5); RED BLOOD CELL CT 4.83 /CUMM (4.70-6.10)
[2016-07-21 08:40] LABS: HEMATOCRIT 41.3 % (42-52)
--- NOTE | 2016-07-21 09:07 | RADIOLOGY REPORT ---
EXAMINATION: XR CHEST CLINICAL INFORMATION: Pneumonia. Shortness of breath and cough. COMPARISON: None TECHNIQUE: 2 views of the chest were obtained. FINDINGS: Lung volumes are low. The cardiomediastinal silhouette is normal. The lungs are clear. No consolidation, pulmonary edema, pleural effusion, or pneumothorax. No acute osseous abnormalities are evident. IMPRESSION: No acute abnormality.
--- NOTE | 2016-07-21 09:49 | PN- Housestaff ---
Subjective Follow-up For: Cellulitis URI Subjective: Patient is 21 year old male with PMH of necrotizing fascitis in left thigh treated in November 2015 came with cellulitis of right thigh. Patient feels well. He reports that the rash developed yesterday and had subkective fever at home. This am he is afebrile but tachycardiac to HR of 100, He has remained tachycardiac since admission. RR 20, Pulse ox 96%. His leukocytosis is improving. Review of Systems Constitutional: Reports: see HPI. Objective Last 24 Hrs of Vital Signs/I&O Vital Signs Date Time Temp Pulse Resp B/P Pulse O2 O2 Flow FiO2 Ox Delivery Rate 07/21 1414 98.2 100 20 116/77 96 07/21 1207 98.2 103 20 112/70 92 07/21 1045 100 100/72 07/21 0557 98.1 96 20 94/70 95 Room Air 07/21 0426 98.3 103 20 110/70 96 Room Air 07/20 2353 99.9 108 18 102/52 94 Room Air 07/20 2318 99 Room Air 07/20 2024 100.9 134 16 134/79 98 Room Air Room Air Intake & Output 07/21 1600 07/21 0800 07/21 0000 Intake Total 1050 Output Total Balance 1050 Intake, IV 850 Intake, Oral 200 Patient 108.862 kg 108.862 kg Weight Physical Exam General Appearance: Alert, Oriented X3, Cooperative, No Acute Distress Skin: erythema in lateral aspect of right thigh HEENT: Atraumatic Neck: Supple Cardiovascular: Regular Rate, Normal S1, Normal S2 Lungs: Clear to Auscultation, Normal Air Movement Abdomen: Normal Bowel Sounds, Soft, No Tenderness Current Medications: Current Medications Sig/Ced Start time Last Medication Dose Route Stop Time Status Admin Acetaminophen 650 MG Q6P PRN 07/21 0230 AC 07/21 PO 1025 Acetaminophen 0 .STK-MED ONE 07/20 2256 DC IV Acetaminophen 1,000 MG ONCE ONE 07/20 2230 DC 07/20 N/A 1 UNIT IV 07/20 2244 2307 Ampicillin Sodium/ 3,000 MG Q6 07/21 0600 AC 07/21 Sulbactam Sodium IV 1224 Sodium Chloride 100 ML Ampicillin Sodium/ 0 .STK-MED ONE 07/20 2321 DC Sulbactam Sodium .ROUTE Ampicillin Sodium/ 3,000 MG ONCE ONE 07/20 2230 DC 07/20 Sulbactam Sodium IV 07/20 2259 2345 Sodium Chloride 100 ML Aripiprazole 2 MG DAILY 07/21 1000 AC 07/21 PO 1026 Ciprofloxacin 400 MG ONCE ONE 07/20 2230 DC 07/21 Dextrose/Water 200 ML IV 07/20 2329 0150 Clindamycin 600 MG ONCE ONE 07/20 2229 DC 07/21 Dextrose/Water 50 ML IV 07/20 2259 0041 Clonazepam 1 MG BID 07/21 0220 AC 07/21 PO 07/28 0219 0435 Duloxetine HCl 60 MG DAILY 07/21 1000 AC 07/21 PO 1026 Gabapentin 300 MG Q8 07/21 0600 AC 07/21 PO 1406 Heparin Sodium 5,000 UNIT Q8 07/21 0122 DC (Porcine) SC Hydromorphone HCl 1 MG Q6P PRN 07/21 1100 AC IV Hydromorphone HCl 0 .STK-MED ONE 07/21 0001 DC .ROUTE Hydromorphone HCl 1 MG ONCE ONE 07/20 2345 DC 07/21 IV 07/20 2346 0019 Hydromorphone HCl 0 .STK-MED ONE 07/20 2321 DC .ROUTE Hydromorphone HCl 1 MG ONCE ONE 07/20 2230 DC 07/20 IV 07/20 2231 2345 Methylphenidate HCl 10 MG TID 07/21 1600 AC PO Morphine Sulfate 2 MG Q4P PRN 07/21 0230 DC 07/21 IV 0438 Oxycodone HCl 5 MG Q6P PRN 07/21 0230 AC PO Patient Medication 1 ED .STK-MED ONE 07/21 1407 DC Teaching ED 07/21 1408 Sodium Chloride 250 ML BOLUS ONE 07/21 1100 DC 07/21 IV 07/21 1159 1056 Sodium Chloride 1,000 ML ONCE ONE 07/21 0245 AC 07/21 IV 07/21 1604 0436 Sodium Chloride 1,000 ML .Q10H 07/21 0030 AC 07/21 IV 0027 Sodium Chloride 1,000 ML BOLUS ONE 07/20 2230 DC 07/20 IV 07/20 2329 2307 Vancomycin HCl 1,500 MG ONCE ONE 07/21 1000 DC Dextrose/Water 500 ML IV 07/21 1129 Last 24 Hrs of Lab/Reza Results Last 24 Hrs of Labs/Mics: Laboratory Tests 07/21/16 0610: Anion Gap 9, Estimated GFR > 60, BUN/Creatinine Ratio 10.0, CBC w Diff MAN DIFF ORDERED, RBC 4.83, MCV 85.6, MCH 28.9, RDW 17.7 H, MPV 7.4, Gran % 87.2 H, Lymphocytes % 10.4 L, Monocytes % 2.0, Eosinophils % 0.3, Basophils % 0.1, Absolute Granulocytes 11.4 H, Segmented Neutrophils 76 H, Band Neutrophils 6 H, Absolute Lymphocytes 1.4, Lymphocytes 15 L, Monocytes 2, Absolute Monocytes 0.3, Eosinophils 1, Absolute Eosinophils 0, Absolute Basophils 0, Platelet Estimate ADEQUATE, Normocytic RBCs VERIFIED, Normochromic RBCs VERIFIED, PUBS MCHC 33.7 07/21/16 0115: Lactic Acid Cancelled 07/20/16 2305: Anion Gap 9, Estimated GFR > 60, BUN/Creatinine Ratio 10.0, Glucose 81, Lactic Acid 1.3, Calcium 7.9 L, Total Bilirubin 0.4, AST 26, ALT 65, Alkaline Phosphatase 70, Total Protein 5.8 L, Albumin 3.2 L, Globulin 2.6, Albumin/ Globulin Ratio 1.2 07/20/162214: PT 12.8 H, INR 1.22 H, APTT 27, CBC w Diff MAN DIFF ORDERED, RBC 5.88, MCV 85.8, MCH 28.4, RDW 16.9 H, MPV 7.2 L, Gran % 90.7 H, Lymphocytes % 8.1 L, Monocytes % 1.0 L, Eosinophils % 0.1, Basophils % 0.1, Absolute Granulocytes 17.0 H, Segmented Neutrophils 78 H, Band Neutrophils 9 H, Absolute Lymphocytes 1.5, Lymphocytes 11 L, Monocytes 2, Absolute Monocytes 0.2, Absolute Eosinophils 0, Absolute Basophils 0, Platelet Estimate ADEQUATE, Normocytic RBCs VERIFIED, Normochromic RBCs VERIFIED, PUBS MCHC 33.1 Microbiology 07/21 237 URINE ROUT: Streptococcus pneumoniae Antigen (M - COLB 07/20 2229 BLOOD: Blood Culture - RES 07/20 2214 BLOOD: Blood Culture - RES Assessment/Plan Assessment: Patient is a 21-year-old male with past medical history significant for a necrotizing fasciitis as well as cellulitis on the right upper thigh, ADHD, anxiety and depression, migraine headaches, nephrolithiasis, OCD, who came to the ED with fever of 2 weeks and a right upper thigh pain and erythema for one day. Also reported symptoms of URTI for [address] scan of the pelvis reported subcutaneous fluid and skin thickening of the right upper thigh without defined abscess or air in the soft tissue. Patient also reports coughing, shortness of breath for the past few days. Problem list and plan Sepsis with fever and cellulitis Patient has a history of necrotizing fasciitis status post debridement in November 2015 on the right upper thigh. Lactic acid 1.3, leukocytosis is improving. CT scan pelvis does not show any collection of pus. Dr. Salgado will evaluate the patient in afternoon for any possible drianage. Radiology service has been requested to compare the currect CT scan thigh with the previous one from Apr 2016. Patient is on unasyn, will continue. Dilaudid 1 mg q6prn for pain control Tylenol for fever prn Possible bronchitis with cough, sore throat, SOB and fever Patient refused Flu swab. He says he has a hx of seasonal allergies. will provide symptomatic treatment History of ADHD Patient does not take Adderall regularly every day, takes 30 mg if needed. Will start ratilin as inpatient. The hospital does not carry adderoll. History of anxiety and depression and migraine headaches Continued on duloxetine 60 mg daily, aripiprazole 2 mg daily, Klonopin 1 mg twice a day History of neuropathic pain Developed after debridement for necrotizing fasciitis a year ago, patient reports paresthesia of the right distal upper thigh. Will continue gabapentin 300 mg every 8h DVT prophylaxis * Mechanical for possible surgical intervention Diet * NPO CODE STATUS * full code Problem List: 1. Cellulitis Pain Ratin Pain Location: right thigh Pain Goal: Pain 4 or less Pain Plan: Dilaudid 1 mg q6 prn Tomorrow's Labs & Rationales: cbc
[2016-07-21 10:45] VITALS: BP 100/72
[2016-07-21 12:07] VITALS: BP 112/70
--- NOTE | 2016-07-21 12:08 | PN- Att Addend ---
Attending Addendum Attending Brief Note Patient seen and examined, complained of migraine headache. He is a 21-year-old male who was admitted with sepsis secondary to right lower extremity cellulitis. With patient's previous history of necrotizing fasciitis, surgical evaluation was obtained last evening and they recommended reevaluation this morning by Hema Mcclure MD. Vital Signs Date Time Temp Pulse Resp B/P Pulse O2 O2 Flow FiO2 Ox Delivery Rate 07/21 0557 98.1 96 20 94/70 95 Room Air 07/21 0426 98.3 103 20 110/70 96 Room Air 07/20 2353 99.9 108 18 102/52 94 Room Air 07/20 2318 99 Room Air 07/20 2023 100.9 134 16 134/79 98 Room Air Room Air on exam; aox3, nad. cv; s1,s2, rrr. resp; clear. abd; soft, nt, bs+ ext; no edema. skin; there is resolving erythema on right thigh. Laboratory Tests 07/21 07/21 07/20 0610 0115 2305 Chemistry Sodium (137 - 145 mmol/L) 139 136 L Potassium (3.5 - 5.1 mmol/L) 3.8 3.7 Chloride (98 - 107 mmol/L) 106 101 Carbon Dioxide (22 - 30 mmol/L) 24 26 Anion Gap (5 - 16) 9 9 BUN (9 - 20 mg/dL) 10 12 Creatinine (0.7 - 1.2 mg/dL) 1.0 1.2 Estimated GFR (>60 ml/min) > 60 > 60 BUN/Creatinine Ratio (7 - 25 %) 10.0 10.0 Glucose (65 - 99 mg/dL) 81 Lactic Acid (0.7 - 2.1 mmol/L) Cancelled 1.3 Calcium (8.4 - 10.2 mg/dL) 7.9 L Total Bilirubin (0.2 - 1.3 mg/dL) 0.4 AST (17 - 59 U/L) 26 ALT (21 - 72 U/L) 65 Alkaline Phosphatase (< 127 U/L) 70 Total Protein (6.3 - 8.2 g/dL) 5.8 L Albumin (3.5 - 5.0 g/dL) 3.2 L Globulin (1.9 - 4.2 gm/dL) 2.6 Albumin/Globulin Ratio (1.1 - 2.2 %) 1.2 Hematology CBC w Diff MAN DIFF ORDERED WBC (4.8 - 10.8 /CUMM) 13.1 H RBC (4.70 - 6.10 /CUMM) 4.83 Hgb (14.0 - 18.0 G/DL) 13.9 L Hct (42 - 52 %) 41.3 L MCV (80.0 - 94.0 FL) 85.6 MCH (27.0 - 31.0 PG) 28.9 RDW (11.5 - 14.5 %) 17.7 H Plt Count (130 - 400 /CUMM) 203 MPV (7.4 - 10.4 FL) 7.4 Gran % (42.2 - 75.2 %) 87.2 H Lymphocytes % (20.5 - 51.1 %) 10.4 L Monocytes % (1.7 - 9.3 %) 2.0 Eosinophils % (0 - 5 %) 0.3 Basophils % (0.0 - 2.0 %) 0.1 Absolute Granulocytes (1.4 - 6.5 /CUMM) 11.4 H Segmented Neutrophils (42.2 - 75.2 %) 76 H Band Neutrophils (0.0 - 5.0 %) 6 H Absolute Lymphocytes (1.2 - 3.4 /CUMM) 1.4 Lymphocytes (20.5 - 51.1 %) 15 L Monocytes (1.7 - 9.3 %) 2 Absolute Monocytes (0.10 - 0.60 /CUMM) 0.3 Eosinophils (0 - 5.0 %) 1 Absolute Eosinophils (0.0 - 0.7 /CUMM) 0 Absolute Basophils (0.0 - 0.2 /CUMM) 0 Platelet Estimate (ADEQUATE) ADEQUATE Normocytic RBCs VERIFIED Normochromic RBCs VERIFIED PUBS MCHC (33.0 - 37.0 G/DL) 33.7 07/20 2215 Coagulation PT (9.4 - 12.5 SEC) 12.8 H INR (0.90 - 1.17) 1.22 H APTT (25 - 37 SEC) 27 Hematology CBC w Diff MAN DIFF ORDERED WBC (4.8 - 10.8 /CUMM) 18.8 H RBC (4.70 - 6.10 /CUMM) 5.88 Hgb (14.0 - 18.0 G/DL) 16.7 Hct (42 - 52 %) 50.4 MCV (80.0 - 94.0 FL) 85.8 MCH (27.0 - 31.0 PG) 28.4 RDW (11.5 - 14.5 %) 16.9 H Plt Count (130 - 400 /CUMM) 237 MPV (7.4 - 10.4 FL) 7.2 L Gran % (42.2 - 75.2 %) 90.7 H Lymphocytes % (20.5 - 51.1 %) 8.1 L Monocytes % (1.7 - 9.3 %) 1.0 L Eosinophils % (0 - 5 %) 0.1 Basophils % (0.0 - 2.0 %) 0.1 Absolute Granulocytes (1.4 - 6.5 /CUMM) 17.0 H Segmented Neutrophils (42.2 - 75.2 %) 78 H Band Neutrophils (0.0 - 5.0 %) 9 H Absolute Lymphocytes (1.2 - 3.4 /CUMM) 1.5 Lymphocytes (20.5 - 51.1 %) 11 L Monocytes (1.7 - 9.3 %) 2 Absolute Monocytes (0.10 - 0.60 /CUMM) 0.2 Absolute Eosinophils (0.0 - 0.7 /CUMM) 0 Absolute Basophils (0.0 - 0.2 /CUMM) 0 Platelet Estimate (ADEQUATE) ADEQUATE Normocytic RBCs VERIFIED Normochromic RBCs VERIFIED PUBS MCHC (33.0 - 37.0 G/DL) 33.1 A/P; 21 yo morbidly obese M with h/o chronic migraine, nephrolithiasis, ADHD, MDD, KISHA, OCD, previous necrotizing fascitis of right thigh requiring multiple debridements and wound Vac (COUNTS INCLUDE 234 BEDS AT THE [facility] November 2015), now admitted with sepsis likely 2/2 to cellulitis. I doubt that patient has necrotizing fascitis. No known history of MRSA. Will stop the vancomycin and continue the patient on Unasyn. Patient was evaluated by surgical team yesterday and they recommended reevaluation this morning by Hema Mcclure MD. That is still pending. Currently patient NPO in case if surgery recommends any procedures. Patient was started on morphine but said that morphine was not controlling his pain therefore will switch him to IV Dilaudid. Blood pressure has been running slightly low, patient is receiving IV fluids. Continue other current psych medications. Please start Lovenox for DVT px.
[2016-07-21 14:14] VITALS: BP 116/77
--- NOTE | 2016-07-21 18:07 | Cons- General Surgery ---
General Information and HPI Consulting Request Date of Consult: 07/21/16 Requested By: MARIXA HUNTER MD History of Present Illness: CC: Right groin pain and swelling HPI: 21-year-old overweight nondiabetic smoker had surgery for necrotizing fasciitis in his right groin last August according to his mother the wounds didn't finally heal and completely close until late February. Patient came in last night to the ER with pain and redness and swelling at the surgical sites he had this before in April where it was treated as an outpatient with antibiotics this time it hurts the swelling is mostly posterior near his buttocks the previous time it was more anterior in the groin crease he thinks he has had a little bit of a fever, if feels better today but not much, he's on IV antibiotics, pain is not worse on movement he's moving his bowels regularly no diarrhea no constipation no anal pain no ankle swelling, as this time he's unsure what happened in April to trigger this inflammation. . I've reviewed the [facility]. No history of bleeding problems, heart disease or issues with anesthesia, but he has a history of UTIs and kidney stones. Allergies/Medications Allergies: Coded Allergies: No Known Allergies (07/20/16) Home Med List: Aripiprazole (Abilify) 2 MG TABLET 1 TAB PO DAILY DEPRESSION (Reported) Clonazepam 1 MG TABLET 1 TAB PO BID ANXIETY (Reported) Dextroamphetamine/Amphetamine (Adderall 30 MG Tablet) 30 MG TABLET 1 TAB PO DAILY PRN ADD (Reported) Duloxetine HCl (Cymbalta) 60 MG CAPSULE.DR 1 CAP PO DAILY PAIN/DEPRESSION ( Reported) Gabapentin 300 MG CAPSULE 1 CAP PO TID NEUROPATHIC PAIN (Reported) Current Medications: I reviewed Current Medications Sig/Ced Start time Last Medication Dose Route Stop Time Status Admin Acetaminophen 650 MG Q6P PRN 07/21 0230 AC 07/21 PO 1025 Acetaminophen 0 .STK-MED ONE 07/20 2256 DC IV Acetaminophen 1,000 MG ONCE ONE 07/20 2230 DC 07/20 N/A 1 UNIT IV 07/20 2244 2307 Ampicillin Sodium/ 3,000 MG Q6 07/21 0600 AC 07/21 Sulbactam Sodium IV 1224 Sodium Chloride 100 ML Ampicillin Sodium/ 0 .STK-MED ONE 07/20 2321 DC Sulbactam Sodium .ROUTE Ampicillin Sodium/ 3,000 MG ONCE ONE 07/20 2230 DC 07/20 Sulbactam Sodium IV 07/20 2259 2345 Sodium Chloride 100 ML Aripiprazole 2 MG DAILY 07/21 1000 AC 07/21 PO 1026 Ciprofloxacin 400 MG ONCE ONE 07/20 2230 DC 07/21 Dextrose/Water 200 ML IV 07/20 2329 0150 Clindamycin 600 MG ONCE ONE 07/20 2230 DC 07/21 Dextrose/Water 50 ML IV 07/20 2259 0041 Clonazepam 1 MG BID 07/21 0220 AC 07/21 PO 07/28 0219 0435 Duloxetine HCl 60 MG DAILY 07/21 1000 AC 07/21 PO 1026 Gabapentin 300 MG Q8 07/21 0600 AC 07/21 PO 1406 Heparin Sodium 5,000 UNIT Q8 07/21 0122 DC (Porcine) SC Hydromorphone HCl 1 MG Q6P PRN 07/21 1100 AC 07/21 IV 1655 Hydromorphone HCl 0 .STK-MED ONE 07/21 0001 DC .ROUTE Hydromorphone HCl 1 MG ONCE ONE 07/20 2345 DC 07/21 IV 07/20 2346 0019 Hydromorphone HCl 0 .STK-MED ONE 07/20 2321 DC .ROUTE Hydromorphone HCl 1 MG ONCE ONE 07/20 223 DC 07/20 IV 07/20 2231 2345 Methylphenidate HCl 10 MG TID 07/21 1600 AC PO Morphine Sulfate 2 MG Q4P PRN 07/21 0230 DC 07/21 IV 0438 Oxycodone HCl 5 MG Q6P PRN 07/21 0230 AC PO Patient Medication 1 ED .STK-MED ONE 07/21 1407 DC Teaching ED 07/21 1408 Sodium Chloride 250 ML BOLUS ONE 07/21 1100 DC 07/21 IV 07/21 1159 1056 Sodium Chloride 1,000 ML ONCE ONE 07/21 0245 DC 07/21 IV 07/21 1604 0436 Sodium Chloride 1,000 ML .Q10H 07/21 0030 AC 07/21 IV 1644 Sodium Chloride 1,000 ML BOLUS ONE 07/20 2230 DC 07/20 IV 07/20 2329 2307 Vancomycin HCl 1,500 MG ONCE ONE 07/21 1000 DC Dextrose/Water 500 ML IV 07/21 1129 Past History Medical History Blood Transfusion Hx: No Neurological: migraine EENT: NONE Cardiovascular: NONE Respiratory: NONE Gastrointestinal: NONE Hepatic: NONE Renal: nephrolithiasis Musculoskeletal: necrotizing fasciitis R WRIST FX FX TOE Psychiatric: anxiety, depression, OCD, ADHD Endocrine: NONE Blood Disorders: NONE Cancer(s): NONE 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 Home Services at Home: None ETOH Use: occasional use Illicit Drug Use: denies illicit drug use Living Will? yes Functional Ability ADLs Independent: dressing, eating, toileting, bathing. Ambulation: independent IADLs Independent: shopping, housework, finances, food prep, telephone, transportation , medication admin. Review of Systems Review of Systems: Constitutional: No fever, sweats or weight loss ENMT: No sore throat Cardiovascular: No chest pain, palpitations or leg swelling Respiratory: No shortness of breath, cough, or sputum or dyspnea on exertion GI: No GERD or bleeding per rectum : No dysuria or hematuria Musculoskeletal: No new muscle weakness, bone or joint pain Skin / Breast: No jaundice, rashes or itching Psychiatric: No history of drug or alcohol abuse no depression or anxiety Hematologic / lymphatic system: No problems with excessive bleeding, bruising, or blood clots Exam & Diagnostic Data Vital Signs and I&O I reviewed Vital Signs Date Time Temp Pulse Resp B/P Pulse O2 O2 Flow FiO2 Ox Delivery Rate 07/21 1414 98.2 100 20 116/77 96 07/21 1207 98.2 103 20 112/70 92 07/21 1045 100 100/72 07/21 0557 98.1 96 20 94/70 95 Room Air 07/21 0426 98.3 103 20 110/70 96 Room Air 07/20 2353 99.9 108 18 102/52 94 Room Air 07/20 2318 99 Room Air 07/20 2023 100.9 134 16 134/79 98 Room Air Room Air I reviewed Intake & Output 07/21 1600 07/21 0800 07/21 0000 07/20 1600 07/20 0807/20 0000 Intake Total 1050 Output Total Balance 1050 Intake, IV 850 Intake, Oral 200 Patient 240 lb 240 lb Weight Physical Exam: Constitutional: pleasant, no acute distress, conversant Eyes: sclera anicteric ENMT: ears and nose atraumatic, moist mucous membranes, good dentition, no lip lesions Neck: Supple, trachea is midline, no cervical or supraclavicular adenopathy and no palpable thyromegaly Cardiovascular: S1, S2, no murmurs, no peripheral edema Respiratory: clear to auscultation with normal respiratory effort and no intercostal retractions GI: abdomen soft, nontender, nondistended, no palpable hepatosplenomegaly Extremities / lymphatics: symmetrically warm, free range of motion no peripheral edema, no cervical, supraclavicular, axillary, or inguinal adenopathy Musculoskeletal: Normal gait and station, no digital cyanosis, good muscle strength and tone no atrophy, motor grossly 5 out of 5 throughout Skin: no jaundice, no rashes warm, nondiaphoretic, In the right inguinal femoral region there is a soft tissue defect with healed scar his medial thigh is larger than his left he says that's been that way since the surgery there is erythema and edema mostly medially near the scrotum and around back near the buttock crease but no skin breakdown no crepitus no necrosis it's dry and overall its less than last night as evidenced by the pen jacobs Psychiatric: mood and affect are appropriate and alert and oriented to person place and time Last 24 Hours of Labs: I reviewed Laboratory Tests 07/21 07/21 07/20 0610 0115 2305 Chemistry Sodium (137 - 145 mmol/L) 139 136 L Potassium (3.5 - 5.1 mmol/L) 3.8 3.7 Chloride (98 - 107 mmol/L) 106 101 Carbon Dioxide (22 - 30 mmol/L) 24 26 Anion Gap (5 - 16) 9 9 BUN (9 - 20 mg/dL) 10 12 Creatinine (0.7 - 1.2 mg/dL) 1.0 1.2 Estimated GFR (>60 ml/min) > 60 > 60 BUN/Creatinine Ratio (7 - 25 %) 10.0 10.0 Glucose (65 - 99 mg/dL) 81 Lactic Acid (0.7 - 2.1 mmol/L) Cancelled 1.3 Calcium (8.4 - 10.2 mg/dL) 7.9 L Total Bilirubin (0.2 - 1.3 mg/dL) 0.4 AST (17 - 59 U/L) 26 ALT (21 - 72 U/L) 65 Alkaline Phosphatase (< 127 U/L) 70 Total Protein (6.3 - 8.2 g/dL) 5.8 L Albumin (3.5 - 5.0 g/dL) 3.2 L Globulin (1.9 - 4.2 gm/dL) 2.6 Albumin/Globulin Ratio (1.1 - 2.2 %) 1.2 Hematology CBC w Diff MAN DIFF ORDERED WBC (4.8 - 10.8 /CUMM) 13.1 H RBC (4.70 - 6.10 /CUMM) 4.83 Hgb (14.0 - 18.0 G/DL) 13.9 L Hct (42 - 52 %) 41.3 L MCV (80.0 - 94.0 FL) 85.6 MCH (27.0 - 31.0 PG) 28.9 RDW (11.5 - 14.5 %) 17.7 H Plt Count (130 - 400 /CUMM) 203 MPV (7.4 - 10.4 FL) 7.4 Gran % (42.2 - 75.2 %) 87.2 H Lymphocytes % (20.5 - 51.1 %) 10.4 L Monocytes % (1.7 - 9.3 %) 2.0 Eosinophils % (0 - 5 %) 0.3 Basophils % (0.0 - 2.0 %) 0.1 Absolute Granulocytes (1.4 - 6.5 /CUMM) 11.4 H Segmented Neutrophils (42.2 - 75.2 %) 76 H Band Neutrophils (0.0 - 5.0 %) 6 H Absolute Lymphocytes (1.2 - 3.4 /CUMM) 1.4 Lymphocytes (20.5 - 51.1 %) 15 L Monocytes (1.7 - 9.3 %) 2 Absolute Monocytes (0.10 - 0.60 /CUMM) 0.3 Eosinophils (0 - 5.0 %) 1 Absolute Eosinophils (0.0 - 0.7 /CUMM) 0 Absolute Basophils (0.0 - 0.2 /CUMM) 0 Platelet Estimate (ADEQUATE) ADEQUATE Normocytic RBCs VERIFIED Normochromic RBCs VERIFIED PUBS MCHC (33.0 - 37.0 G/DL) 33.7 07/20 2215 Coagulation PT (9.4 - 12.5 SEC) 12.8 H INR (0.90 - 1.17) 1.22 H APTT (25 - 37 SEC) 27 Hematology CBC w Diff MAN DIFF ORDERED WBC (4.8 - 10.8 /CUMM) 18.8 H RBC (4.70 - 6.10 /CUMM) 5.88 Hgb (14.0 - 18.0 G/DL) 16.7 Hct (42 - 52 %) 50.4 MCV (80.0 - 94.0 FL) 85.8 MCH (27.0 - 31.0 PG) 28.4 RDW (11.5 - 14.5 %) 16.9 H Plt Count (130 - 400 /CUMM) 237 MPV (7.4 - 10.4 FL) 7.2 L Gran % (42.2 - 75.2 %) 90.7 H Lymphocytes % (20.5 - 51.1 %) 8.1 L Monocytes % (1.7 - 9.3 %) 1.0 L Eosinophils % (0 - 5 %) 0.1 Basophils % (0.0 - 2.0 %) 0.1 Absolute Granulocytes (1.4 - 6.5 /CUMM) 17.0 H Segmented Neutrophils (42.2 - 75.2 %) 78 H Band Neutrophils (0.0 - 5.0 %) 9 H Absolute Lymphocytes (1.2 - 3.4 /CUMM) 1.5 Lymphocytes (20.5 - 51.1 %) 11 L Monocytes (1.7 - 9.3 %) 2 Absolute Monocytes (0.10 - 0.60 /CUMM) 0.2 Absolute Eosinophils (0.0 - 0.7 /CUMM) 0 Absolute Basophils (0.0 - 0.2 /CUMM) 0 Platelet Estimate (ADEQUATE) ADEQUATE Normocytic RBCs VERIFIED Normochromic RBCs VERIFIED PUBS MCHC (33.0 - 37.0 G/DL) 33.1 Assessment/Plan Assessment/Plan Studies I reviewed on PACS myself the CT scans from last night April 23 and last December 15 that one doesn't go low enough but the April scan and the current scan shows similar changes in that region there is skin thickening and scarring but no focal fluid collections no gas bubbles and no clear stranding overall it seems the changes seem relatively superficial. Impression is recurrent cellulitis which is probably somehow related to the original problem and extensive prior surgery and prolonged several month healing , perhaps there is an element of impaired lymphatic or venous drainage because of the tissue defect and interruption of vessels his leukocytosis has improved he's afebrile is no signs of abscess or tissue necrosis I would continue the IV antibiotics. I stressed to him the importance of stopping smoking as it affects healing, especially skin. Problem List: 1. Cellulitis of groin, right Consult Acknowledgment - Thank you for your consult request.
[2016-07-21 21:23] VITALS: BP 110/74
[2016-07-22 06:57] VITALS: BP 110/74
--- NOTE | 2016-07-22 08:08 | PN- Housestaff ---
BRANDY THOMAS 07/22/16 0808: Subjective Follow-up For: right leg cellulitis Subjective: Patient is seen and examined. Reported of headache. He continues to be tachycardiac but refused to EKG. He does not complain of pain in his right thigh region. ROS negative for Chest pain, dizziness, SOB. Review of Systems Constitutional: Reports: see HPI. Objective Last 24 Hrs of Vital Signs/I&O Vital Signs Date Time Temp Pulse Resp B/P Pulse O2 O2 Flow FiO2 Ox Delivery Rate 07/22 0657 99.7 112 25 110/74 92 Room Air 07/21 2123 98.9 105 24 110/74 92 Room Air 07/21 1414 98.2 100 20 116/77 96 Intake & Output 07/22 1600 07/22 0800 07/22 0000 Intake Total 1100 1050 Output Total 450 Balance 1100 600 Intake, IV 800 800 Intake, Oral 300 250 Output, Urine 450 Physical Exam General Appearance: Alert, Oriented X3, Cooperative, No Acute Distress Skin: No Rashes, No Breakdown HEENT: Atraumatic Neck: Supple Cardiovascular: Regular Rate, Normal S1, Normal S2 Lungs: Clear to Auscultation, Normal Air Movement Abdomen: Normal Bowel Sounds, Soft, No Tenderness Neurological: Normal Speech Extremities: erythematous lesion on lateral aspect of right thigh Current Medications: Current Medications Sig/Ced Start time Last Medication Dose Route Stop Time Status Admin Acetaminophen 650 MG Q6P PRN 07/21 0230 AC 07/22 PO 1033 Ampicillin Sodium/ 3,000 MG Q6 07/21 0600 AC 07/22 Sulbactam Sodium IV 1228 Sodium Chloride 100 ML Aripiprazole 2 MG DAILY 07/21 1000 AC 07/22 PO 1032 Clonazepam 1 MG BID 07/21 0220 AC 07/22 PO 07/28 0219 1033 Duloxetine HCl 60 MG DAILY 07/21 1000 AC 07/22 PO 1032 Gabapentin 300 MG Q8 07/21 0600 AC 07/22 PO 0525 Hydromorphone HCl 1 MG Q6P PRN 07/21 1100 AC 07/22 IV 0606 Methylphenidate HCl 10 MG TID 07/21 1600 AC PO Oxycodone HCl 5 MG Q6P PRN 07/21 0230 AC PO Patient Medication 1 ED .STK-MED ONE 07/21 1407 DC Teaching ED 07/21 1408 Sodium Chloride 1,000 ML ONCE ONE 07/21 0245 DC 07/21 IV 07/21 1604 0436 Sodium Chloride 1,000 ML .Q10H 07/21 0030 AC 07/22 IV 0525 Last 24 Hrs of Lab/Reza Results Last 24 Hrs of Labs/Mics: Laboratory Tests 07/22/16 0635: CBC w Diff NO MAN DIFF REQ, RBC 4.59 L, MCV 86.0, MCH 28.8, RDW 17.4 H, MPV 7.8, Gran % 61.4, Lymphocytes % 25.9, Monocytes % 10.6 H, Eosinophils % 1.9, Basophils % 0.2, Absolute Granulocytes 5.0, Absolute Lymphocytes 2.1, Absolute Monocytes 0.9 H, Absolute Eosinophils 0.2, Absolute Basophils 0, PUBS MCHC 33.5 07/21/16 1650: Urine Opiates Screen 2634.00 H, Methadone Screen 75, Barbiturate Screen < 60, Ur Phencyclidine Scrn < 6.00, Amphetamines Screen 654, U Benzodiazepines Scrn < 85, Urine Cocaine Screen < 50, Urine Cannabis Screen 11.60, Urinalysis MOD H, Urine Color YEL, Urine Clarity CLEAR, Urine pH 6.0, Ur Specific [place] >= 1.030 , Urine Protein 30 H, Urine Ketones TRACE H, Urine Nitrite NEG, Urine Bilirubin NEG, Urine Urobilinogen 0.2, Ur Leukocyte Esterase NEG, Ur Microscopic SEDIMENT EXAMINED, Urine RBC RARE, Urine WBC RARE, Ur Epithelial Cells MOD H, Urine Mucus FEW, Urine Hemoglobin NEG, Urine Glucose NEG Microbiology 07/21 1649 URINE ROUT: Streptococcus pneumoniae Antigen (M - COMP Assessment/Plan Assessment: Patient is a 21-year-old male with past medical history significant for a necrotizing fasciitis as well as cellulitis on the right upper thigh, ADHD, anxiety and depression, migraine headaches, nephrolithiasis, OCD, who came to the ED with fever of 2 weeks and a right upper thigh pain and erythema for one day. Also reported symptoms of URTI for [address] scan of the pelvis reported subcutaneous fluid and skin thickening of the right upper thigh without defined abscess or air in the soft tissue. Patient also reports coughing, shortness of breath for the past few days. Problem list and plan Sepsis with fever and cellulitis Patient has a history of necrotizing fasciitis status post debridement in November 2015 on the right upper thigh. Lactic acid 1.3, CT scan pelvis does not show any collection of pus. Dr. Salgado evaluated the patient on 07/21, he does not think there there is any abcess to drain. Patient is on unasyn, will continue. Dilaudid 1 mg q6prn for pain control Tylenol for fever prn Possible bronchitis with cough, sore throat, SOB and fever Patient refused Flu swab. He says he has a hx of seasonal allergies. will provide symptomatic treatment. He feels better History of ADHD Patient takes Adderall 30 mg if needed. Will start ratilin as inpatient as needed. The hospital does not carry adderoll. History of anxiety and depression and migraine headaches Continued on duloxetine 60 mg daily, aripiprazole 2 mg daily, Klonopin 1 mg twice a day History of neuropathic pain Developed after debridement for necrotizing fasciitis a year ago, patient reports paresthesia of the right distal upper thigh. Will continue gabapentin 300 mg every 8h DVT prophylaxis * Mechanical Diet * regular Koshar and vegitarian CODE STATUS * full code Problem List: 1. Cellulitis Pain Ratin Pain Location: right thigh lateral aspect Pain Goal: Pain 4 or less Pain Plan: dilaudid and tylenol prn Tomorrow's Labs & Rationales: issa HUNTER MD,MARIXA 07/22/16 1111: Attending MD Review Statement Attending Statement Attending MD Statement: examined this patient, discuss w/resident/PA/TEACHER AIDE, agreed w/resident/PA/TEACHER AIDE, reviewed EMR data (avail), discussed with nursing, reviewed images, amended to note Attending Assessment/Plan: Patient seen and examined, still has some pain. The right high erythema has improved. Patient is still getting of headache. He was found to be slightly tachycardic so he wanted to get an EKG but he refused. I also encouraged him to walk outside the room he said that he has some anxiety therefore he cannot walk, people. He will try that later when no one is around. Vital Signs Date Time Temp Pulse Resp B/P Pulse O2 O2 Flow FiO2 Ox Delivery Rate 07/22 0657 99.7 112 25 110/74 92 Room Air 07/21 2123 98.9 105 24 110/74 92 Room Air 07/21 1414 98.2 100 20 116/77 96 07/21 1207 98.2 103 20 112/70 92 on exam; aox3, nad. cv; s1,s2, rrr. resp; clear abd; soft, nt, bs+ ext; no edema. Laboratory Tests 07/22 07/21 0635 1650 Hematology CBC w Diff NO MAN DIFF REQ WBC (4.8 - 10.8 /CUMM) 8.2 RBC (4.70 - 6.10 /CUMM) 4.59 L Hgb (14.0 - 18.0 G/DL) 13.2 L Hct (42 - 52 %) 39.5 L MCV (80.0 - 94.0 FL) 86.0 MCH (27.0 - 31.0 PG) 28.8 RDW (11.5 - 14.5 %) 17.4 H Plt Count (130 - 400 /CUMM) 176 MPV (7.4 - 10.4 FL) 7.8 Gran % (42.2 - 75.2 %) 61.4 Lymphocytes % (20.5 - 51.1 %) 25.9 Monocytes % (1.7 - 9.3 %) 10.6 H Eosinophils % (0 - 5 %) 1.9 Basophils % (0.0 - 2.0 %) 0.2 Absolute Granulocytes (1.4 - 6.5 /CUMM) 5.0 Absolute Lymphocytes (1.2 - 3.4 /CUMM) 2.1 Absolute Monocytes (0.10 - 0.60 /CUMM) 0.9 H Absolute Eosinophils (0.0 - 0.7 /CUMM) 0.2 Absolute Basophils (0.0 - 0.2 /CUMM) 0 PUBS MCHC (33.0 - 37.0 G/DL) 33.5 Toxicology Urine Opiates Screen (>2000 NG/ML) 2634.00 H Methadone Screen (>300 NG/ML) 75 Barbiturate Screen (>200 NG/ML) < 60 Ur Phencyclidine Scrn (>25 NG/ML) < 6.00 Amphetamines Screen (>1000 NG/ML) 654 U Benzodiazepines Scrn (>200 NG/ML) < 85 Urine Cocaine Screen (>300 NG/ML) < 50 Urine Cannabis Screen (>50 NG/ML) 11.60 Urines Urinalysis MOD H Urine Color (YEL,AMB,STR) YEL Urine Clarity (CLEAR) CLEAR Urine pH (5.0 - 8.0) 6.0 Ur Specific [place] (1.001 - 1.035) >= 1.030 Urine Protein (NEG,<30 MG/DL) 30 H Urine Ketones (NEG) TRACE H Urine Nitrite (NEG) NEG Urine Bilirubin (NEG) NEG Urine Urobilinogen (0.1 - 1.0 EU/dl) 0.2 Ur Leukocyte Esterase (NEG) NEG Ur Microscopic SEDIMENT EXAMINED Urine RBC (0 - 5 /HPF) RARE Urine WBC (0 - 2 /HPF) RARE Ur Epithelial Cells (NONE,FEW) MOD H Urine Mucus (FEW,NONE) FEW Urine Hemoglobin (NEG) NEG Urine Glucose (N MG/DL) NEG A/P; 21 yo morbidly obese M with h/o chronic migraine, nephrolithiasis, ADHD, MDD, KISHA, OCD, previous necrotizing fascitis of right thigh requiring multiple debridements and wound Vac ([facility]), now admitted with sepsis likely 2/2 to cellulitis. I doubt that patient has necrotizing fascitis. Patient seen by surgery Dr. Blount and as per his evaluation also there is no necrotizing fasciitis. He is currently getting treated for sepsis secondary to cellulitis. Sepsis has resolved now. Cellulitis is improving. We'll keep him on IV antibiotics for another 24 hours and likely tomorrow switch to oral antibiotics to complete a total of 7-10 day course. Requested to get an EKG for tachycardia but patient refused. He said that he's feeling anxious. He is also still in pain. He could have tachycardia secondary to those 2 reasons. Patient encouraged to ambulate. DVT prophylaxis: Please add pharmacologic DVT prophylaxis with Lovenox.
[2016-07-22 08:52] LABS: ABSOLUTE BASOPHIL COUNT 0 /CUMM (0.0-0.2); ABSOLUTE EOSINOPHIL COUNT 0.2 /CUMM (0.0-0.7); ABSOLUTE LYMPH COUNT 2.1 /CUMM (1.2-3.4); ABSOLUTE MONOCYTE COUNT 0.9 /CUMM (0.10-0.60); BASOPHIL % 0.2 % (0.0-2.0); EOSINOPHIL % 1.9 % (0-5); GRANULOCYTE % 61.4 % (42.2-75.2); HEMATOCRIT 39.5 % (42-52); MEAN CORPUSCULAR HGB 28.8 PG (27.0-31.0); MEAN CORPUSCULAR HGB CONC 33.5 G/DL (33.0-37.0); MEAN PLATELET VOLUME 7.8 FL (7.4-10.4); PLATELET COUNT 176 /CUMM (130-400); RBC DISTRIBUTION WIDTH 17.4 % (11.5-14.5); RED BLOOD CELL CT 4.59 /CUMM (4.70-6.10); WHITE BLOOD CELL COUNT 8.2 /CUMM (4.8-10.8)
[2016-07-22 15:53] VITALS: BP 102/82
[2016-07-22 22:31] VITALS: BP 108/80
--- NOTE | 2016-07-23 07:28 | PN- Housestaff ---
BRANDY THOMAS 07/23/16 0728: Subjective Follow-up For: right lower extremety cellulitis Subjective: Patient seen and examined. he feels better. He was already dressed for discharge. Patient will be switched to PO antibiotics today (augmentin) and discharged for a total of 10 days. Patient has been afebrile, no leukocytosis. Review of Systems Constitutional: Reports: see HPI. Objective Last 24 Hrs of Vital Signs/I&O Vital Signs Date Time Temp Pulse Resp B/P Pulse O2 O2 Flow FiO2 Ox Delivery Rate 07/23 0638 84 96 Room Air 07/23 0000 97 Room Air 07/22 2231 98.3 96 20 108/80 97 Room Air 07/22 1553 97.6 80 20 102/82 96 Room Air Intake & Output 07/23 1600 07/23 0800 07/23 0000 Intake Total 400 1350 Output Total Balance 400 1350 Intake, IV 800 Intake, Oral 400 550 Physical Exam General Appearance: Alert, Oriented X3, Cooperative, No Acute Distress Skin: No Rashes, No Breakdown HEENT: Atraumatic Neck: Supple Cardiovascular: Regular Rate, Normal S1, Normal S2 Lungs: Clear to Auscultation, Normal Air Movement Abdomen: Normal Bowel Sounds, Soft, No Tenderness Extremities: rash on lateral aspect of right thigh Current Medications: Current Medications Sig/Ced Start time Last Medication Dose Route Stop Time Status Admin Acetaminophen 650 MG Q6P PRN 07/21 0230 AC 07/23 PO 0846 Ampicillin Sodium/ 3,000 MG Q6 07/21 0600 AC 07/23 Sulbactam Sodium IV 1104 Sodium Chloride 100 ML Aripiprazole 2 MG DAILY 07/21 1000 AC 07/23 PO 0845 Clonazepam 1 MG BID 07/21 0220 AC 07/23 PO 07/28 0219 0845 Duloxetine HCl 60 MG DAILY 07/21 1000 AC 07/23 PO 0845 Gabapentin 300 MG Q8 07/21 0600 AC 07/23 PO 0515 Hydromorphone HCl 1 MG Q6P PRN 07/21 1100 DC 07/23 IV 0515 Methylphenidate HCl 10 MG TID 07/21 1600 AC PO Oxycodone HCl 5 MG Q6P PRN 07/21 0230 AC 07/23 PO 1105 Potassium Chloride 10 MEQ .STK-MED ONE 07/22 1951 DC PO 07/22 1952 Sodium Chloride 1,000 ML .Q10H 07/21 0030 DC 07/22 IV 2051 Assessment/Plan Assessment: Patient is a 21-year-old male with past medical history significant for a necrotizing fasciitis as well as cellulitis on the right upper thigh, ADHD, anxiety and depression, migraine headaches, nephrolithiasis, OCD, who came to the ED with fever of 2 weeks and a right upper thigh pain and erythema for one day. Also reported symptoms of URTI for [address] scan of the pelvis reported subcutaneous fluid and skin thickening of the right upper thigh without defined abscess or air in the soft tissue. Patient also reports coughing, shortness of breath for the past few days. Problem list and plan Sepsis with fever and cellulitis Patient has a history of necrotizing fasciitis status post debridement in November 2015 on the right upper thigh. Lactic acid 1.3, CT scan pelvis does not show any collection of pus. Dr. Salgado evaluated the patient on 07/21, he does not think there there is any abcess to drain. Patient is on unasyn,will switch him to PO augmentin and discharge. Oxycodon and tylenol prn for pain Possible bronchitis with cough, sore throat, SOB and fever Patient refused Flu swab. He says he has a hx of seasonal allergies. will provide symptomatic treatment. He feels better History of ADHD Patient takes Adderall 30 mg if needed. Will start ratilin as inpatient as needed. The hospital does not carry adderoll. History of anxiety and depression and migraine headaches Continued on duloxetine 60 mg daily, aripiprazole 2 mg daily, Klonopin 1 mg twice a day History of neuropathic pain Developed after debridement for necrotizing fasciitis a year ago, patient reports paresthesia of the right distal upper thigh. Will continue gabapentin 300 mg every 8h DVT prophylaxis * Mechanical Diet * regular K[employer] and vegitarian CODE STATUS * full code Problem List: 1. Cellulitis Pain Ratin Pain Location: right thigh Pain Goal: Pain 4 or less Pain Plan: oxycodon prn for pain Tomorrow's Labs & Rationales: none MARIXA HUNTER MD 07/23/16 1034: Attending MD Review Statement Attending Statement Attending MD Statement: examined this patient, discuss w/resident/PA/BUYER PLANNER, agreed w/resident/PA/BUYER PLANNER, reviewed EMR data (avail), discussed with nursing, discussed with case mgmt, amended to note Attending Assessment/Plan: Patient seen and examined, claims that he's overall feeling slightly better. The right thigh cellulitis has improved. There is less erythema. Patient remains afebrile with white count normal. We will switch him to oral antibiotics. He's medically stable for discharge home today. He will be completing a total of 10 day course. He will be continued on the rest of his medications and he should follow-up with his primary care doctor as an outpatient.
[2016-07-23] MEDS ORDERED: AUGMENTIN 875-1 EACH PO ×2 (08:01→09:27)
--- NOTE | 2016-07-23 08:02 | Patient Discharge Instructions ---
Discharge Instructions General Discharge Information Special Instructions: pLEASE FOLLOW UP WITH YOUR PCP UPON DISCHARGE Acute Coronary Syndrome Inclusion Criteria At DC or during hospital stay patient has or had the following: ACS DIAGNOSIS No Discharge Core Measures Meds if any: Prescribed or Continued at Discharge Meds if any: NOT Prescribed or Continued at Discharge Congestive Heart Failure Inclusion Criteria At DC or during hospital stay patient has or had the following: CHF DIAGNOSIS No Discharge Core Measures Meds if any: Prescribed or Continued at Discharge Meds if any: NOT Prescribed or Continued at Discharge Cerebrovascular accident Inclusion Criteria At DC or during hospital stay patient has or had the following: CVA/TIA Diagnosis No Discharge Core Measures Meds if any: Prescribed or Continued at Discharge Meds if any: NOT Prescribed or Continued at Discharge Venous thromboembolism Inclusion Criteria VTE Diagnosis No VTE Type NONE VTE Confirmed by (Test) NONE Discharge Core Measures - Per Current guidelines, there needs to be overlap - treatment for the first 5 days of Warfarin therapy. - If discharged on Warfarin prior to 5 days of - overlap therapy, the patient will need to be - assessed for post discharge needs including - *Post discharge parental anticoagulation - *Warfarin and/or parental anticoagulation education - *Follow up date to check INR post discharge At least 5 days overlap therapy as Inpatient No Meds if any: Prescribed or Continued at Discharge Note: Overlap Therapy is Warfarin and Anticoagulant Meds if any: NOT Prescribed or Continued at Discharge
--- NOTE | 2016-07-23 10:32 | Discharge Summary ---
Visit Information Visit Dates Admission Date: 07/20/16 Discharge Date: 07/23/16 Hospital Course Course Attending Physician: MARIXA HUNTER MD Primary Care Physician: HUONG APARICIO MD Hospital Course: Patient is a 21-year-old male with past medical history significant for a necrotizing fasciitis as well as cellulitis on the right upper thigh, ADHD, anxiety and depression, migraine headaches, nephrolithiasis, OCD, who came to the ED with fever of 2 weeks and a right upper thigh pain and erythema for one day. Also reported symptoms of URTI for [address] scan of the pelvis reported subcutaneous fluid and skin thickening of the right upper thigh without defined abscess or air in the soft tissue. Patient also reported of coughing, shortness of breath for the past few days. Patient was seen and treated for; Sepsis with fever and cellulitis Patient has a history of necrotizing fasciitis status post debridement in November 2015 on the right upper thigh. CT scan pelvis did not show any collection of pus. Dr. Salgado (general surgery) evaluated the patient on 07/21, he does not think there there is any abcess to drain. Patient was started on unasyn with plan to discharge him on oral augmentin Dilaudid 1 mg q6prn for pain control, discharged on oyxcodon for pain Possible bronchitis with cough, sore throat, SOB and fever Patient refused Flu swab. He says he has a hx of seasonal allergies. He was provided symptomatic treatment. He feels better on the day of his discharge. History of ADHD Patient takes Adderall 30 mg if needed. Will started pn ratilin as inpatient as needed. The hospital does not carry adderoll. History of anxiety and depression and migraine headaches Continued on duloxetine 60 mg daily, aripiprazole 2 mg daily, Klonopin 1 mg twice a day at his home dose History of neuropathic pain Patient states that he Developed neuropathic pain after debridement for necrotizing fasciitis a year ago, patient reports paresthesia of the right distal upper thigh. Was continued on gabapentin 300 mg every 8h. Allergies: Coded Allergies: No Known Allergies (07/20/16) Disposition Summary Disposition Principal Diagnosis: Cellulitis right thigh Additional Diagnosis: Viral URI Discharge Disposition: home or self care Discharge Instructions General Discharge Information Code Status: Full Code Patient's Diet: heart healthy Patient's Activity: as tolerated Follow-Up Instructions/Appts: please call you PCP within 7 days of discharge for a follow up appointment Medications at Discharge Discharge Medications: Continue taking these medications: Clonazepam (Clonazepam) 1 MG TABLET 1 Tablet ORAL TWICE DAILY Qty = 60 Comments: Last Taken: 07/23/16 Time: 9 AM Gabapentin (Gabapentin) 300 MG CAPSULE 1 Capsule ORAL THREE TIMES DAILY Comments: Last Taken: 07/23/16 Time: 6 AM Dextroamphetamine/Amphetamine (Adderall 30 MG Tablet) 30 MG TABLET 1 Tablet ORAL DP as needed for ADD Comments: NOT GIVEN Duloxetine HCl (Cymbalta) 60 MG CAPSULE.DR 1 Capsule ORAL DAILY Comments: Last Taken: 07/23/16 Time: 9 AM Aripiprazole (Abilify) 2 MG TABLET 1 Tablet ORAL DAILY Comments: Last Taken: 07/23/16 Time: 9 AM Start taking the following new medications: Amoxicillin/Potassium Clav (Augmentin 875-125 Tablet) 875 MG-125 MG TABLET 1 Tablet ORAL TWICE DAILY Days = 8 No Refills Comments: NOT GIVEN Oxycodone HCl (Oxycodone HCl) 5 MG TABLET 1 Tablet ORAL EVERY 8 HOURS NEEDED as needed for MODERATE TO SEVERE Qty = 6 No Refills Copies To: ELSA TAYLOR,MARIXA; MARKUS TAYLOR,HUONG [place]
[2016-07-23] MEDS ORDERED: OXYCODONE HCL5 M1 PO (13:07)
[2016-07-23 14:20] VITALS: BP 118/62
== END 2016-07-23 16:30 | DRG 872 ==
LOC: ENRESERVDT → ENRESERVTM → CANRESERV → ERH 20:14 → ENPENDDIS 23:42 → 2NA 23:42 → ERHI 23:42 → 2NA 07-21 02:48
PROVIDERS: Internal Medicine; Physician Assistant; ADMIT Student in an Organized Health Care Education/Training Program
DX: A41.9 Sepsis, unspecified organism (principal); L03.115 Cellulitis of right lower limb; Z68.36 Body mass index [BMI] 36.0-36.9, adult; E66.9 Obesity, unspecified; J06.9 Acute upper respiratory infection, unspecified; F32.9 Major depressive disorder, single episode, unspecified; F41.9 Anxiety disorder, unspecified; G43.909 Migraine, unspecified, not intractable, without status migrainosus
CPT/HCPCS: 2NAP; ERO; 80307; 81001; 82436; 87040; 87450; 87804; 87804-59; 96365; 96375; J0131; J0744; J1644; J3370; J7040; J7060